=== PATIENT | female | born 1930 | race Caucasian/White ===

== ENCOUNTER 2017-11-23 10:42 | Inpatient (IN) | payer OTHER ==
[~2017-11-23] VITALS: Ht 152.4 cm; Wt 59.2 kg
[2017-11-23 10:47] VITALS: Ht 152.4 cm; Wt 59.2 kg
[2017-11-23 11:47] LABS: CALCIUM 8.3 mg/dL (8.5-10.1); CARBON DIOXIDE 31.7 mmol/L (21-32); CHLORIDE SERUM 106 mmol/L (98-107); CREATININE SERUM 1.4 mg/dL (0.6-1.0); GLUCOSE SERUM 93 mg/dL (74-106); POTASSIUM SERUM 3.7 mmol/L (3.5-5.1); SODIUM SERUM 142 mmol/L (136-145)
[2017-11-23 11:52] LABS: ALKALINE PHOSPHATASE 66 U/L (46-116); ALT/SGPT 21 U/L (14-59); AST/SGOT 21 U/L (15-37); BILIRUBIN TOTAL 0.6 mg/dL (0.20-1.00); TOTAL PROTEIN, SERUM 6.5 g/dL (6.4-8.2)
[2017-11-23 11:54] LABS: BASOPHIL % 0.6 % (0-2); RED CELL DISTRIBUTION WIDTH 13.7 % (11.5-14.5)
[2017-11-23 11:58] LABS: ALBUMIN 3.2 g/dL (3.4-5.0); CHOLESTEROL 110 mg/dL (<200)
[2017-11-23 11:59] LABS: T3 TOTAL 0.76 ng/mL
[2017-11-23 12:56] LABS: FREE T4 1.18 ng/dL (0.76-1.46); FREE THYROXINE INDEX 2.5 ug/dL (1.4-4.5); T4(THYROXINE) 6.7 ug/dL (4.7-13.3)
[2017-11-23 12:56] LABS: microscopic required? YES; urine erythrocyte 1+ (NEGATIVE)
[2017-11-23 12:58] LABS: PLATELET COUNT 123 x10^3mcL (130-400)
[2017-11-23] MEDS ORDERED: LEVOXYL0.075 MG PO (13:50)
[2017-11-23] MEDS ORDERED: LIPI10 PO (13:50)
[2017-11-23] MEDS ORDERED: LOSARTAN POTASS1 TAB PO (13:51)
[2017-11-23] MEDS ORDERED: NAMZARIC1 ECC PO (13:51)
[2017-11-23] MEDS ORDERED: CITALOPRAM HYDR20 M1 PO (13:52)
[2017-11-23 14:34] VITALS: BP 139/55
[2017-11-23 16:06] LABS: AMPHETAMINE QUAL UR NONE DETECTED (See below)
[2017-11-23 18:47] LABS: MAGNESIUM 2.2 mg/dL (1.8-2.4); PHOSPHOROUS 3.7 mg/dL (2.5-4.9)
[2017-11-23 19:07] LABS: CHOLESTEROL/HDL RATIO 2.1
[2017-11-23 21:57] VITALS: BP 132/51
[2017-11-24 06:06] VITALS: BP 161/82
[2017-11-24 06:19] LABS: BASOPHIL % 0.2 % (0-2); RED CELL DISTRIBUTION WIDTH 13.6 % (11.5-14.5)
[2017-11-24 06:22] LABS: CALCIUM 8.4 mg/dL (8.5-10.1); CARBON DIOXIDE 27.9 mmol/L (21-32); CHLORIDE SERUM 108 mmol/L (98-107); GLUCOSE SERUM 88 mg/dL (74-106); POTASSIUM SERUM 3.3 mmol/L (3.5-5.1); SODIUM SERUM 144 mmol/L (136-145)
[2017-11-24 06:27] LABS: CREATININE SERUM 1.1 mg/dL (0.6-1.0)
[2017-11-24 06:54] LABS: PLATELET COUNT 128 x10^3mcL (130-400)
[2017-11-24 09:25] VITALS: BP 122/76
[2017-11-24 13:34] VITALS: BP 110/60
[2017-11-24 17:36] VITALS: BP 101/50
[2017-11-24 19:54] VITALS: BP 109/53
[2017-11-25 05:42] VITALS: BP 124/57
[2017-11-25 06:42] LABS: BASOPHIL % 0.3 % (0-2); RED CELL DISTRIBUTION WIDTH 13.8 % (11.5-14.5)
[2017-11-25 06:43] LABS: PLATELET COUNT 125 x10^3mcL (130-400)
[2017-11-25 06:52] LABS: CALCIUM 8.4 mg/dL (8.5-10.1); CARBON DIOXIDE 24.1 mmol/L (21-32); CHLORIDE SERUM 110 mmol/L (98-107); CREATININE SERUM 1.1 mg/dL (0.6-1.0); GLUCOSE SERUM 89 mg/dL (74-106); POTASSIUM SERUM 3.6 mmol/L (3.5-5.1); SODIUM SERUM 142 mmol/L (136-145)
[2017-11-25 09:58] VITALS: BP 134/59
[2017-11-25] MEDS ORDERED: METOPROLOL SUCC25 M2 PO (12:32)
[2017-11-25 12:33] VITALS: BP 134/59
[2017-11-25 13:50] VITALS: BP 119/57
== END 2017-11-25 17:00 | disposition home or self-care (01) | DRG 308 ==
LOC: ED 10:42 → DU 13:30
PROVIDERS: Family Medicine; Specialist
DX: R00.1 Bradycardia, unspecified (principal); N17.0 Acute kidney failure with tubular necrosis; E44.0 Moderate protein-calorie malnutrition; I10 Essential (primary) hypertension; N20.0 Calculus of kidney; E78.5 Hyperlipidemia, unspecified; F32.9 Major depressive disorder, single episode, unspecified; G30.9 Alzheimer's disease, unspecified; F02.80 Dementia in other diseases classified elsewhere, unspecified severity, without behavioral disturbance, psychotic disturbance, mood disturbance, and anxiety; R31.9 Hematuria, unspecified; E03.9 Hypothyroidism, unspecified; Z98.1 Arthrodesis status; Z79.899 Other long term (current) drug therapy; Z68.22 Body mass index [BMI] 22.0-22.9, adult
CPT/HCPCS: 83880; 84439; 97535-GP; G0480; J7030; J7050; Q0092

== ENCOUNTER 2018-12-17 19:24 | Emergency (ER) | payer OTHER ==
[~2018-12-17] VITALS: Ht 152.4 cm; Wt 54.9 kg
[~2018-12-17 19:24] MED LIST: CITALOPRAM HYDR20 M1 PO; LEVOXYL0.075 MG PO; LIPI10 PO; LOSARTAN POTASS1 TAB PO; METOPROLOL SUCC25 M2 PO; NAMZARIC1 ECC PO
[2018-12-17 19:32] VITALS: Ht 152.4 cm; Wt 54.9 kg
[2018-12-17 22:00] VITALS: BP 125/72
== END 2018-12-17 22:00 | disposition home or self-care (01) ==
LOC: ED 19:24
DX: S00.83XA Contusion of other part of head, initial encounter (principal); F03.90 Unspecified dementia, unspecified severity, without behavioral disturbance, psychotic disturbance, mood disturbance, and anxiety; I10 Essential (primary) hypertension; G89.29 Other chronic pain; M54.5 Low back pain; Z98.890 Other specified postprocedural states; X58.XXXA Exposure to other specified factors, initial encounter; Y93.89 Activity, other specified; Y92.89 Other specified places as the place of occurrence of the external cause; Y99.8 Other external cause status

== ENCOUNTER 2019-01-09 16:35 | Inpatient (IN) | payer OTHER ==
[~2019-01-09] VITALS: Ht 144.8 cm; Wt 55.8 kg
[2019-01-09 16:38] VITALS: Ht 144.8 cm; Wt 55.8 kg
--- NOTE | 2019-01-09 16:40 | NUR ---
PT BIBA FROM HOME. PER MEDICS PT WAS DOWNSTAIRS AND CAREGIVER WAS UPSTAIRS WHEN WHEN THE CAREGIVER WHEN DOWNSTAIRS PT WAS ON THE FLOOR AND UNABLE TO STATE WHAT HAPPENED. PT HAD NOTED VOMIT ON SHIRT WHEN FOUND. PT HAS HX OF ALZHEIMERS. PT DENIES ANY PAIN AT THIS TIME. EKG BEING DONE AT BEDSIDE. PT IS HOOKED UP TO FULL MONITORS, SIDE RAILS UP , CALL LIGHT IN REACH, WILL CONTINUE TO MONITOR
--- NOTE | 2019-01-09 16:50 | NUR ---
20G IV TO RFA INITIATED BY MEDICS CLASSIFICATION CLERK, MEETING RESISTANCE UPON FLUSHING, PT ALSO C/O PAIN TO SITE, IMMEDIATELY D/C. 20G RAC IV INITIATED, NO S/S OF INFILTRATION NOTED, LABS AND BLOOD CULTURES DRAWN FROM IV, WASTEWATER TREATMENT PLANT CHEMIST AT BEDSIDE TO RECEIVE.
[2019-01-09 17:06] LABS: BASOPHIL % 0.4 % (0-2); PLATELET COUNT 132 x10^3mcL (130-400); RED CELL DISTRIBUTION WIDTH 13.5 % (11.5-14.5)
[2019-01-09 17:08] LABS: microscopic required? YES; urine erythrocyte 2+ (NEGATIVE)
[2019-01-09 17:25] LABS: CALCIUM 8.7 mg/dL (8.5-10.1); CARBON DIOXIDE 30.2 mmol/L (21-32); CHLORIDE SERUM 103 mmol/L (98-107); CREATININE SERUM 1.4 mg/dL (0.6-1.0); GLUCOSE SERUM 109 mg/dL (74-106); POTASSIUM SERUM 3.9 mmol/L (3.5-5.1); SODIUM SERUM 142 mmol/L (136-145)
[2019-01-09 17:35] LABS: ALKALINE PHOSPHATASE 56 U/L (46-116); ALT/SGPT 25 U/L (14-59); AST/SGOT 18 U/L (15-37); BILIRUBIN TOTAL 0.5 mg/dL (0.20-1.00); TOTAL PROTEIN, SERUM 6.4 g/dL (6.4-8.2)
[2019-01-09 17:41] LABS: ALBUMIN 3.2 g/dL (3.4-5.0)
[2019-01-09 17:45] LABS: T3 TOTAL 0.61 ng/mL
[2019-01-09 17:46] LABS: ERYTHROCYTE SED RATE 17 mm/hr (0-30)
[2019-01-09 17:48] LABS: C REACTIVE PROTEIN 0.2 mg/dL (<=0.9)
--- NOTE | 2019-01-09 17:53 | NUR ---
PT DAUGHTER AT BEDSIDE
[2019-01-09 17:58] LABS: CK-MB 2.2 ng/mL (0-3.6)
[2019-01-09 18:17] LABS: FREE T4 1.13 ng/dL (0.76-1.46); FREE THYROXINE INDEX 2.2 ug/dL (1.4-4.5); T4(THYROXINE) 5.7 ug/dL (4.7-13.3)
--- NOTE | 2019-01-09 18:39 | NUR ---
PT AMBULATED TO THE RESTROOM WITH DAUGHTER WITH STEADY GAIT AND NAD
--- NOTE | 2019-01-09 19:15 | NUR ---
RECEIVED REPORT FROM TEODORA FRANCISCO. ASSUMING ALL CARE. PT IS AWAKE/ALERT. BREATHING IS E/U ON RA. NO S/S OF ACUTE DISTRESS NOTED. BED IN LOW POSITION. CALL LIGHT IN REACH. WILL CONT TO MONITOR
--- NOTE | 2019-01-09 19:15 | NUR ---
REPORT GIVEN TO LEXII FRANCISCO FOR FURTHER CARE OF PT
--- NOTE | 2019-01-09 19:32 | NUR ---
DR. CALDWELL AT BEDSIDE SPEAKING WITH THE PT AND PT'S FAMILY IN REGARDS TO POC
--- NOTE | 2019-01-09 20:39 | NUR ---
REPORT GIVEN TO BLANCA FRANCISCO FOR CONTINUITY OF CARE. ALL QUESTIONS/CONCERNS ADDRESSED AT THIS TIME.
--- NOTE | 2019-01-09 20:56 | NUR ---
PT TRANSFERRED AT THIS TIME VIA GURNEY. PT IS A/OX4. BREATHING IS E/U ON RA. NO S/S OF ACUTE DISTRESS NOTED. RAC IV REMAINS IN PLACE, SALINE LOCKED. BLANCA FRANCISCO TO ASSUME CARE
--- NOTE | 2019-01-09 20:57 | NUR ---
PT WAS RECEIVED BY PRIMARY NURSE BLANCA FROM ED VIA [employer]. PT IS AAOX2 (PERSON, PLACE AND BIRTHDATE). ABLE TO FOLLOW SIMPLE COMMANDS. SPEECH IS CLEAR. NO SOB NOTED, LUNG SOUNDS CTA. DENIES CHEST PAIN/PRESSURE, SB W/ BBB. DENIES ABDOMINAL DISCOMFORT. BOWEL SOUNDS ACTIVE. VOIDS. IV SITE ON THE RAC IS PATENT AND INTACT. SIDE RAILS UPX. CALL LIGHT ON REACH. HOB ELEVATED AT 30 DEG. PRIMARY NURSE BLANCA AT BEDSIDE FOR CONTINUITY OF CARE
[2019-01-09 21:17] VITALS: BP 136/48
--- NOTE | 2019-01-09 21:32 | NUR ---
DR. ORTEZ IS PAGED FOR ADMIT ORDERS. WAITING FOR CALLBACK
--- NOTE | 2019-01-09 21:36 | NUR ---
RECEIVED A CALLBACK FROM DR. ORTEZ, READBACK AND WERE CARRIED OUT
--- NOTE | 2019-01-09 21:36 | NUR ---
DR. ORTEZ MADE AWARE THAT URINARLYSIS SHOWS +2 BLOOD, NO NEW ORDERS AT THIS TIME
--- NOTE | 2019-01-09 21:40 | NUR ---
RECIEVED PT FROM RESOURCE NURSE. PT IS RESTING IN BED, TELE # 9 SB WITH BBB. PT DENIES ANY CHEST PAIN OR SOB AT THIS TIME. PT DENIES ANY N/V OR SYNCOPE. BREATHING EVEN AND UNLABORED. NO RESP DISTRESS NOTED. CALL LIGHT WITHIN REACH. PT HAS PERIODS OF CONFUSION, REORIENTED TO NOT PULL OFF TELE MONTIOR OR ANY LINES. WILL CON TO MONITOR.
--- NOTE | 2019-01-10 00:05 | NUR ---
PT AWAKE IN BED. PERIODS OF CONFSUION. REORIENTED PT TO SELF AND PLACE. PT HAS EPISODES OF RESTLENESS. PT DENIES ANY PAIN AT THIS TIME. NO RESP DISTRESS NOTED. RESPONDS TO VERBAL STIMULI. WILL CONT TO MONITOR.
[2019-01-10 05:09] VITALS: BP 150/66
--- NOTE | 2019-01-10 05:56 | NUR ---
PT SLEPT ON AND OFF DURING THE NIGHT. PERIODS OF CONFUSION. PT IS ON TELE # 9 SB WITH BBB. PT DENIES ANY CHEST PAIN OR SOB AT THIS TIME. PT DENIES ANY N/V OR SYNCOPE. BREATHING EVEN AND UNLABORED. NO RESP DISTRESS NOTED. PT WAS REORIENTED TO NOT PULL OFF TELE MONTIOR OR ANY LINES. IV TO RAC INFUSING WELL. NO REDNESS OR SWELLING NOTED. WILL CONT TO MONITOR. WILL ENDORSE CARE TO DAY SHIFT.
[2019-01-10 06:15] LABS: BASOPHIL % 0.3 % (0-2); RED CELL DISTRIBUTION WIDTH 13.4 % (11.5-14.5)
[2019-01-10 06:30] LABS: CALCIUM 8.5 mg/dL (8.5-10.1); CARBON DIOXIDE 27.5 mmol/L (21-32); CHLORIDE SERUM 110 mmol/L (98-107); GLUCOSE SERUM 79 mg/dL (74-106); SODIUM SERUM 145 mmol/L (136-145)
[2019-01-10 06:39] LABS: PLATELET COUNT 120 x10^3mcL (130-400)
--- NOTE | 2019-01-10 07:30 | NUR ---
RECEIVED PT IN BED. ASSESSED AND DOCUMENTED. WHEN GETTING AWAKE PT IS TRYING TO PULL LINES. DOUGH MIXER HELPER AT BEDSIDE TO MONITOR THE PT FOR SAFTEY. SAFTEY PRECAUTIONS ARE IN PLACE. WILL MONITOR.
--- NOTE | 2019-01-10 09:05 | NUR ---
CAME AND SAW THE PT. SPOKE WITH PT'S DAUGHTER AND HE DECIDED TO DISCHARGE PT HOME TODAY.
[2019-01-10 09:24] VITALS: BP 110/51
[2019-01-10 11:04] VITALS: BP 110/51
--- NOTE | 2019-01-10 12:50 | NUR ---
PT'S DAUGHTER CAME. DISCHARGE INSTRUCTIONS GIVEN. PB SIGNED AND SENT WITH PT. IV REMOVED AND DRESSING APPLIED. TELE REMOVED AND RETURNED. FILM CLEANER WHEELED PT DOWN TO LOBBY ACCOMPANIED WITH PT'S DAUGHTER, PT DC HOME.
== END 2019-01-10 12:05 | disposition home or self-care (01) | DRG 312 ==
LOC: ED 16:35 → DU 19:55
PROVIDERS: Internal Medicine; Specialist; ADMIT Internal Medicine Pulmonary Disease
DX: R55 Syncope and collapse (principal); E86.0 Dehydration; I10 Essential (primary) hypertension; M54.5 Low back pain; Z96.642 Presence of left artificial hip joint; E03.9 Hypothyroidism, unspecified; G30.9 Alzheimer's disease, unspecified; F02.80 Dementia in other diseases classified elsewhere, unspecified severity, without behavioral disturbance, psychotic disturbance, mood disturbance, and anxiety; Z98.1 Arthrodesis status; Z85.038 Personal history of other malignant neoplasm of large intestine
CPT/HCPCS: 36600; 84439; G0378; J2405; J7030; Q0092